=== PATIENT | female | born 1940 | race Caucasian/White ===

== ENCOUNTER 2016-11-19 18:36 | Emergency (ER) | payer MEDICARE, OTHER ==
[2016-11-19 19:01] VITALS: TEMP 97.1
[2016-11-19] MEDS ORDERED: TDAP VACCINE 0.5 ML SUS IM ONE ×2 (19:23→19:28)
[2016-11-19 20:08] VITALS: BP 140/86; PULSE 90; RESP 18; O2SAT 95
== END 2016-11-19 20:00 | disposition home or self-care (01) | DRG 605 ==
LOC: ED 18:36
DX: S01.01XA Laceration without foreign body of scalp, initial encounter (principal); W01.190A Fall on same level from slipping, tripping and stumbling with subsequent striking against furniture, initial encounter
CPT/HCPCS: 90715; 99284

== ENCOUNTER 2016-12-08 14:33 | Emergency (ER) | payer MEDICARE, OTHER ==
[2016-12-08] MEDS ORDERED: APAP/OXYCODONE 325/5 TAB PO ONE (15:05)
[2016-12-08] MEDS ORDERED: APAP/OXYCODONE 325/5 TAB ONE (15:06)
[2016-12-08 15:24] VITALS: BP 158/84; PULSE 78; RESP 16; TEMP 97.8; O2SAT 97
== END 2016-12-08 17:41 | disposition home or self-care (01) | DRG 185 ==
LOC: ED 14:33
DX: S22.42XA Multiple fractures of ribs, left side, initial encounter for closed fracture (principal); W01.0XXA Fall on same level from slipping, tripping and stumbling without subsequent striking against object, initial encounter
CPT/HCPCS: 71101; 99282; 99283

== ENCOUNTER 2016-12-09 13:47 | Emergency (ER) | payer MEDICARE, OTHER ==
[2016-12-09 14:19] VITALS: TEMP 99
[2016-12-09] MEDS ORDERED: APAP/HYDROCODONE 325/5 TAB PO ONE (14:33)
[2016-12-09] MEDS ORDERED: APAP/HYDROCODONE 325/5 TAB ONE (14:39)
[2016-12-09 14:57] LABS: BASOPHILS % (AUTO) 1 % (0-3); EOSINOPHILS % (AUTO) 1 % (0-9); HEMATOCRIT 42 % (35-47); MEAN CORPUSCULAR HGB CONC 35.2 gm/dl (32.0-36.0); MEAN CORPUSCULAR VOLUME 87 fL (81-99); MONOCYTES % (AUTO) 6.9 % (0-12); NEUTROPHILS % (AUTO) 84.8 % (37-80)
[2016-12-09 14:59] LABS: APPEARANCE,URINE Clear; BILIRUBIN,URINE NEGATIVE (NEGATIVE); COLOR,URINE Yellow; GLUCOSE, URINE (UA) NEGATIVE (NEGATIVE); KETONES,URINE NEGATIVE (NEGATIVE); LEUKOCYTE ESTERASE ,URINE 1+ (NEGATIVE); NITRATE,URINE NEGATIVE (NEGATIVE); OCCULT BLOOD,URINE NEGATIVE (NEG-TRACE); PH,URINE 5.5; UROBILINOGEN,URINE 0.2 (0.2-1.0 EU)
[2016-12-09 15:13] LABS: CALCIUM 9.1 mg/dl (8.5-10.1); POTASSIUM 3.2 mMol/L (3.5-5.1)
[2016-12-09 15:17] LABS: RBC,URINE 0-2 (0-3AV/HPF)
[2016-12-09 16:12] VITALS: BP 142/64; PULSE 84; RESP 16; O2SAT 97
== END 2016-12-09 16:05 | disposition home or self-care (01) | DRG 561 ==
LOC: ED 13:47
DX: S22.42XD Multiple fractures of ribs, left side, subsequent encounter for fracture with routine healing (principal)
CPT/HCPCS: 36415; 80053; 81001; 85025; 99282; 99283

== ENCOUNTER 2016-12-26 11:36 | Emergency (ER) | payer MEDICARE, OTHER ==
[2016-12-26 11:53] VITALS: RESP 16; TEMP 97.7
[2016-12-26 12:33] VITALS: BP 139/79; PULSE 81; O2SAT 94
== END 2016-12-26 12:25 | disposition home or self-care (01) | DRG 156 ==
LOC: ED 11:36
DX: S01.21XA Laceration without foreign body of nose, initial encounter (principal); W19.XXXA Unspecified fall, initial encounter
CPT/HCPCS: 12011; 99284; G0168; A6402

== ENCOUNTER 2018-01-24 08:53 | Day surgery (SDC) | payer MEDICARE, OTHER ==
[~2018-01-24 08:53] MED LIST: MIDAZOLAM 2 MG/2 ML SOL ONE
[2018-01-24] MEDS ORDERED: ACETAZOLAMIDE 250 MG PO ONE (08:59)
[2018-01-24] MEDS: PROPARACAINE HCL 0.5% OPHTHALMIC SOL ONE ×3 (09:32→10:46)
[2018-01-24] MEDS: CYCLOPENTOLATE 1% SOL ONE ×2 (09:32→09:45)
[2018-01-24] MEDS: PHENYLEPHRINE HCL 10% OPHTHAL SOL ONE ×2 (09:33→09:46)
[2018-01-24] MEDS: KETOROLAC 0.5% OPTH 60 DROP SOL ONE ×2 (09:33→09:47)
[2018-01-24] MEDS ORDERED: POVIDONE IODINE 5% SOL ONE (10:40)
[2018-01-24] MEDS ORDERED: BSS 500 ML 500 ML IR ONE (10:40)
[2018-01-24] MEDS ORDERED: LIDOCAINE HCL 1% MPF 30 SOL ONE (10:40)
[2018-01-24 11:26] VITALS: BP 144/87; PULSE 79; RESP 20; TEMP 97.4; O2SAT 94
== END 2018-01-24 12:32 | disposition home or self-care (01) | DRG 125 ==
LOC: SURG 08:53
PROVIDERS: ATTEND Ophthalmology
DX: H25.9 Unspecified age-related cataract (principal)
CPT/HCPCS: J2250; A9270-GY; J2001

== ENCOUNTER 2018-12-03 13:44 | Inpatient (IN) | payer MEDICARE, OTHER ==
[2018-12-03 14:08] LABS: BASOPHILS % (AUTO) 1 % (0-3); EOSINOPHILS % (AUTO) 2 % (0-9); HEMATOCRIT 43 % (35-47); HEMOGLOBIN 13.8 gm/dl (12.0-15.5); LYMPHOCYTES % (AUTO) 11.7 % (10-50); MEAN CORPUSCULAR HEMOGLOBIN 30.2 pg (27.0-32.0); MEAN CORPUSCULAR HGB CONC 32.3 gm/dl (32.0-36.0); MEAN CORPUSCULAR VOLUME 93 fL (81-99); MONOCYTES % (AUTO) 6.5 % (0-12); NEUTROPHILS % (AUTO) 78.8 % (37-80)
[2018-12-03 14:15] LABS: INR 1.04 (0.86-1.12)
[2018-12-03 14:21] LABS: ALBUMIN 3.7 gm/dl (3.4-5.0); BILIRUBIN,TOTAL 0.4 mg/dl (0.2-1.0); CALCIUM 8.4 mg/dl (8.5-10.1); CARBON DIOXIDE 27.7 mEq/L (21-32); CREATININE 1.27 mg/dl (0.60-1.00); POTASSIUM 4.3 mMol/L (3.5-5.1); TOTAL PROTEIN 7.6 gm/dl (6.4-8.2)
[2018-12-03] MEDS ORDERED: APAP/HYDROCODONE 1 EACH TABLET PO ONE (15:28)
[2018-12-03] MEDS ORDERED: SODIUM CHLORIDE 0.9% FLUSH 10 ML SOL IV PRN (15:46)
[2018-12-03] MEDS ORDERED: APAP/HYDROCODONE 1 EACH TABLET ONE (15:48)
[2018-12-03] MEDS ORDERED: ALUMINUM/MAGNESIUM 30 ML SUS PO PRN (18:32)
[2018-12-03] MEDS ORDERED: MAGNESIUM HYDROXIDE 30 ML SUS PO PRN (18:32)
[2018-12-03] MEDS ORDERED: BISACODYL 10 MG SUP PR PRN (18:32)
[2018-12-03] MEDS: APAP/HYDROCODONE 1 EACH TABLET PO PRN ×2 (19:49→23:37)
[2018-12-03] MEDS ORDERED: ATORVASTATIN 10 MG TAB PO SCH (21:00)
[2018-12-03] MEDS ORDERED: AMITRIPTYLINE 10 MG TAB PO SCH (21:00)
[2018-12-03] MEDS ORDERED: ENOXAPARIN 40 MG SOL SC SCH (21:00)
[2018-12-03] MEDS ORDERED: MIRTAZAPINE 15 MG TAB PO SCH (21:00)
[2018-12-03 23:53] VITALS: RESP 16
[2018-12-04 03:57] VITALS: TEMP 98.1
[2018-12-04] MEDS: APAP/HYDROCODONE 1 EACH TABLET PO PRN ×3 (03:57→11:26)
[2018-12-04 08:29] VITALS: BP 129/79; PULSE 80
[2018-12-04] MEDS ORDERED: ALLOPURINOL 100 MG TAB PO SCH (09:00)
[2018-12-04] MEDS ORDERED: LISINOPRIL 20 MG TAB PO SCH (09:00)
[2018-12-04 10:40] VITALS: O2SAT 94
[2018-12-04] MEDS ORDERED: CIPROFLOXACIN HCL 500 MG TAB PO SCH (18:00)
[2018-12-04] MEDS ORDERED: AMITRIPTYLINE 25 MG TAB PO SCH (21:00)
== END 2018-12-04 11:26 | DRG 560 ==
LOC: ED 13:44 → ACUTE CARE 16:48
PROVIDERS: ADMIT Family Medicine; ATTEND Family Medicine
DX: S22.42XD Multiple fractures of ribs, left side, subsequent encounter for fracture with routine healing (principal); N39.0 Urinary tract infection, site not specified; R06.02 Shortness of breath; I10 Essential (primary) hypertension; R09.02 Hypoxemia; E11.9 Type 2 diabetes mellitus without complications
CPT/HCPCS: 36415; 71045; 80053; 85025; 85610; 99283; 99284; J1650; A9270-GY

== ENCOUNTER 2019-02-18 15:36 | Emergency (ER) | payer MEDICARE, OTHER ==
[2019-02-18 16:18] LABS: APPEARANCE,URINE Slightly Cloudy; BILIRUBIN,URINE NEGATIVE (NEGATIVE); COLOR,URINE Yellow; GLUCOSE, URINE (UA) NEGATIVE (NEGATIVE); KETONES,URINE NEGATIVE (NEGATIVE); LEUKOCYTE ESTERASE ,URINE 2+ (NEGATIVE); NITRATE,URINE NEGATIVE (NEGATIVE); OCCULT BLOOD,URINE NEGATIVE (NEG-TRACE); UROBILINOGEN,URINE 0.2 (0.2-1.0 EU)
[2019-02-18 16:37] LABS: BACTERIA RARE (< 1+); CRYSTALS NEGATIVE (0-3 AVE/HPF); EPITHELIAL CELLS 0-1 (SQUAMOUS); RBC,URINE NEG (0-3AV/HPF)
[2019-02-18 16:55] LABS: HEMATOCRIT 40 % (35-47); HEMOGLOBIN 12.7 gm/dl (12.0-15.5); MEAN CORPUSCULAR HEMOGLOBIN 32.1 pg (27.0-32.0); MEAN CORPUSCULAR HGB CONC 31.8 gm/dl (32.0-36.0)
[2019-02-18 16:59] LABS: MEAN CORPUSCULAR VOLUME 101 fL (81-99)
[2019-02-18 17:07] LABS: ALBUMIN 3.3 gm/dl (3.4-5.0); BILIRUBIN,TOTAL 0.3 mg/dl (0.2-1.0); CALCIUM 7.9 mg/dl (8.5-10.1); CARBON DIOXIDE 29.9 mEq/L (21-32); CREATININE 1.02 mg/dl (0.60-1.00); TOTAL PROTEIN 6.4 gm/dl (6.4-8.2)
[2019-02-18 17:11] LABS: BAND NEUTROPHILS % (MANUAL) 0 %; LYMPHOCYTES % (MANUAL) 15 % (10-50); MONOCYTES % (MANUAL) 5 % (0-12); NEUTROPHILS % (MANUAL) 78 % (37-80)
[2019-02-18 17:12] LABS: BASOPHILS % (MANUAL) 1 % (0-3); EOSINOPHILS % (MANUAL) 1 % (0-9); NORMAL RBCS NORMAL RBCS
[2019-02-18] MEDS ORDERED: SULFAMETHOXAZOLE/TRIMETHOPRI 800/160 MG PO ONE (17:24)
[2019-02-18] MEDS ORDERED: SULFAMETHOXAZOLE/TRIMETHOPRI 800/160 MG ONE (17:26)
[2019-02-18] MEDS ORDERED: LORAZEPAM 0.5 MG TAB PO ONE (23:42)
[2019-02-18] MEDS ORDERED: LORAZEPAM 0.5 MG TAB ONE (23:44)
[2019-02-19 10:04] VITALS: BP 133/79; PULSE 74; RESP 18; TEMP 97.4; O2SAT 94
[2019-02-19] MEDS ORDERED: SULFAMETHOXAZOLE/TRIMETHOPRI 800/160 MG PO ONE (11:43)
[2019-02-19] MEDS ORDERED: SULFAMETHOXAZOLE/TRIMETHOPRI 800/160 MG ONE (11:47)
== END 2019-02-19 12:00 | DRG 880 ==
LOC: ED 15:36
DX: F41.9 Anxiety disorder, unspecified (principal); R46.2 Strange and inexplicable behavior; W18.30XA Fall on same level, unspecified, initial encounter; S09.90XA Unspecified injury of head, initial encounter; Z79.899 Other long term (current) drug therapy
CPT/HCPCS: 36415; 70450; 80053; 81001; 84443; 85007; 85027; 87088; 99283; 99285; A9270-GY